=== PATIENT | female | born 1960 | race African-American/Black ===

== ENCOUNTER 2016-10-03 10:33 | Emergency (ER) | payer OTHER ==
[~2016-10-03] VITALS: Ht 163.8 cm; Wt 81.6 kg
[~2016-10-03 10:33] MED LIST: LOSA1TAB17 PO
[2016-10-03 10:37] VITALS: BP 158/58
[2016-10-03] MEDS ORDERED: HYDROXYZINE PAMOATE 25 MG CAPSULE PO STA (11:28)
[2016-10-03] MEDS ORDERED: EPIN0.3A4 IJ (11:38)
[2016-10-03] MEDS ORDERED: HYDR25CA75 PO (11:38)
--- NOTE | 2016-10-03 11:38 | PHYS DOC ---
Past Medical History Past Medical History: GERD, Hypertension Past Surgical History: Other Additional Past Surgical Histo: ovarian cyst removal Alcohol Use: Occasionally Drug Use: None Adult General Chief Complaint Chief Complaint: ALLERGIC REACTION HPI HPI Patient is a 56 year old female who presents with complaint of facial swelling and itching. Patient states that she started developing symptoms 2 days ago and they have gradually worsened since then. Patient states that she was recently diagnosed with anxiety disorder and was started on Xanax and Lexapro by her doctor. Patient states shortly after taking the Xanax she started noticing itching. Patient denies any other unique exposures to perfumes, food, soap, shampoo, or any other materials. Patient states that she is currently having itching and woke up with facial swelling which prompted her to come to the emergency department for evaluation. Patient denies any tongue or throat swelling, difficulty breathing, abdominal pain, nausea, or vomiting. Patient states that she is having persistent chest discomfort for the past 2 months and states that she was admitted at [facility] where she underwent a full cardiac workup that was negative at that time. Patient states that she is not having any change in her symptoms currently. Review of Systems Review of Systems Constitutional: Denies fever or chills [] Eyes: Denies change in visual acuity, redness, or eye pain [] HENT: Facial swelling, Denies nasal congestion or sore throat [] Respiratory: Denies cough or shortness of breath [] Cardiovascular: Denies chest pain or edema [] GI: Denies abdominal pain, nausea, vomiting, bloody stools or diarrhea [] : Denies dysuria or hematuria [] Musculoskeletal: Denies back pain or joint pain [] Integument: Pruritus [] Neurologic: Denies headache, focal weakness or sensory changes [] Allergies Allergies Allergies Coded Allergies Type Severity Reaction Last Updated Verified No Known Drug Allergies 02/06/14 No Physical Exam Physical Exam Constitutional: Alert, afebrile, no acute distress. [] HENT: Normocephalic, atraumatic, bilateral external ears normal, oropharynx moist, no soft tissue swelling of the tongue or pharynx present, no oral exudates, nose normal. [] Eyes: PERRLA, EOMI, conjunctiva normal, mild soft tissue swelling along bilateral eyelids and upper face, no discharge. [] Neck: Normal range of motion, no tenderness, supple, no stridor. [] Cardiovascular:Heart rate regular rhythm, no murmur [] Lungs & Thorax: Bilateral breath sounds clear to auscultation [] Abdomen: Bowel sounds normal, soft, no tenderness, no masses, no pulsatile masses. [] Skin: Warm, dry, no erythema, no rash. [] Back: No tenderness, no CVA tenderness. [] Extremities: No tenderness, no cyanosis, no clubbing, ROM intact, no edema. [] Neurologic: Alert and oriented X 3, normal motor function, normal sensory function, no focal deficits noted. [] Current Patient Data Vital Signs Vital Signs Date Time Temp Pulse Resp B/P Pulse Ox O2 Delivery O2 Flow Rate FiO2 10/03/16 10:37 97.5 72 16 158/58 100 Room Air 97.5 EKG EKG Interpreted by me: Heart rate 65, sinus rhythm, normal intervals, normal axis, no acute ST/T-wave abnormalities present [] Radiology/Procedures Radiology/Procedures Not performed [] Course & Med Decision Making Course & Med Decision Making Pertinent Labs and Imaging studies reviewed. (See chart for details) Patient given Atarax for treatment of both pruritus and help with patient's anxiety disorder. I recommended discontinuing Xanax and Lexapro at this time and recommended follow-up in 3-5 days with patient's primary physician. Advised return to the emergency department for any worsening symptoms. Patient was understanding and in agreement with treatment plan. Dragon Disclaimer Dragon Disclaimer This electronic medical record was generated, in whole or in part, using a voice recognition dictation system. Departure Departure Impression: Primary Impression: Allergic reaction Disposition: 01 HOME, SELF-CARE Condition: GOOD Referrals: THI RAMON MD (PCP) Patient Instructions: Anxiety and Panic Attacks, Itching-Brief Additional Instructions: Follow-up in 3-5 days with your primary doctor. Return to the emergency department for any worsening symptoms. Scripts Epinephrine (Epipen 2-Robert)0.3 Mg/0.3 Ml Auto.injct0.3 Mg IJ 1X PRN ANAPHYLAXIS # 2 SYR Prov:USMAN DIEGO MD 10/03/16 Hydroxyzine Pamoate 25 Mg Tiidcei65 Mg PO Q6HRS PRN ITCHING #60 CAP Prov:USMAN DIEGO MD 10/03/16 Problem Qualifiers Primary Impression: Allergic reaction Encounter type: initial encounter Qualified Code: T78.40XA - Allergy, unspecified, initial encounter USMAN DIEGO MD Oct 03, 2016 11:38
--- NOTE | 2016-10-03 12:51 | EKG ---
[facility] [address] [place] [address] Test Date: 2016-10-03 Test Time: 10:55:28 Pat Name: RAIN TIRADO Department: Room: Gender: F Field Advisor: : [id number] Requested By: USMAN DIEGO Order Number: [id number] Reading MD: Beto Park Measurements Intervals [place] Rate: 65 P: 56 IA: 168 QRS: 42 QRSD: 70 T: 42 QT: 386 QTc: 402 Interpretive Statements SINUS RHYTHM Electronically Signed On 10-04-2016 10:09:49 CDT by Beto Park
== END 2016-10-03 11:50 | disposition home or self-care (01) ==
LOC: ER 10:33
DX: T42.4X5A Adverse effect of benzodiazepines, initial encounter (principal); T43.225A Adverse effect of selective serotonin reuptake inhibitors, initial encounter; K21.9 Gastro-esophageal reflux disease without esophagitis; I10 Essential (primary) hypertension; Y92.89 Other specified places as the place of occurrence of the external cause
CPT/HCPCS: 93005; 99283; Q0177